=== PATIENT | female | born 1990 | race Caucasian/White ===

== ENCOUNTER 2017-02-11 09:11 | Emergency (ER) | payer MEDICAID ==
[2017-02-11 09:34] VITALS: BP 140/81
[2017-02-11] MEDS ORDERED: Sodium Chloride 0.9% 10 ML Syringe FLUSH PRN (09:51)
[2017-02-11] MEDS ORDERED: Ketorolac 30 MG/ML SDV IVPUSH ONE (09:51)
--- NOTE | 2017-02-11 10:37 | CT ---
CT abdomen and pelvis without contrast. Indication: Flank pain. Total DLP 365 Findings: Lung bases are clear. Liver within normal limits. Gallbladder is contracted. Adrenal glands within normal limits. Spleen within normal limits. Pancreas within normal limits. Moderate right-westley ed hydronephrosis. 4.5 mm stone at the right UVJ junction. No hydronephrosis left kidney. No does loo ps of small bowel. Mild free pelvic fluid. The appendix is within normal limits. Bladder is decompres sed. Medullary nephrocalcinosis. Impression: 1. Moderate right-sided hydronephrosis with obstructing 4.5 mm stone at the right UVJ junction.
[2017-02-11] MEDS ORDERED: HYDROmorphone 0.5 MG/0.5 ML Syringe IVPUSH ONE (10:38)
[2017-02-11] MEDS ORDERED: Tamsulosin 0.4 MG Cap.ER PO ONE (10:39)
--- NOTE | 2017-02-11 10:46 | EDM.PDOC ---
ED HPI GENERAL MEDICAL PROBLEM - General Chief Complaint: Genitourinary Problem Stated Complaint: POSSIBLE KIDNEY INFECTION Time Seen by Provider: 02/11/17 09:45 Source of Information: Reports: Patient History Limitations: Reports: No Limitations - History of Present Illness INITIAL COMMENTS - FREE TEXT/NARRATIVE: 26-year-old female who over the last several days thought she might of had a "bladder infection", but an hour and a half ago developed fairly sudden right- sided flank pain. She arrived very uncomfortable, nauseous but not vomiting. No fevers or chills, no shortness of breath. No significant abdominal pain. She has not had previous symptoms like this. She has a [id number] girl at home who she is still breast-feeding. 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 Psychiatric History: Reports: ADHD, Anxiety, Depression - Infectious Disease History Infectious Disease History: Reports: Chicken Pox - Past Surgical History HEENT Surgical History: Reports: Oral Surgery, Tonsillectomy Musculoskeletal Surgical History: Reports: Carpal Tunnel Social & Family History - Family History Family Medical History: Noncontributory - Tobacco Use Smoking Status *Q: Never Smoker Years of Tobacco use: 8 Used Tobacco, but Quit: Yes Month Tobacco Last Used: unknown Second Hand Smoke Exposure: No - Caffeine Use Caffeine Use: Reports: Coffee - Recreational Drug Use Recreational Drug Use: No ED ROS GENERAL - Review of Systems Review Of Systems: See Below Constitutional: Denies: Fever, Chills, Malaise Respiratory: Reports: No Symptoms Cardiovascular: Reports: No Symptoms GI/Abdominal: Reports: Nausea. Denies: Vomiting : Reports: Flank Pain Musculoskeletal: Reports: Back Pain Skin: Reports: No Symptoms Neurological: Reports: No Symptoms ED EXAM, GENERAL - Physical Exam Exam: See Below Exam Limited By: No Limitations General Appearance: Alert, Anxious, Moderate Distress Respiratory/Chest: No Respiratory Distress, Lungs Clear Cardiovascular: Regular Rate, Rhythm GI/Abdominal: Soft, Other (She reaction with tenderness to palpation across the anterior abdomen) Back Exam: Other (Tenderness to palpation over the iliac crest on the right) Neurological: Alert, Oriented Psychiatric: Anxious Skin Exam: Warm, Dry Course - Vital Signs Last Recorded V/S: Last Vital Signs Temp 96.9 F 02/11/17 09:34 Pulse 78 02/11/17 09:34 Resp 20 02/11/17 09:34 BP 140/81 02/11/17 09:34 Pulse Ox 99 02/11/17 09:34 - Orders/Labs/Meds Orders: Active Orders 24 hr Category Date Time Status Saline Lock Insert [OM.PC] Routine Oth 02/11/17 09:51 Ordered Labs: Laboratory Tests 02/11/17 02/11/17 Range/Units 09:53 09:53 Urine Color Yellow Urine Appearance Clear Urine pH 5.0 (4.5-8.0) Ur Specific [place]ard 1.020 (1.008-1.030) Urine Protein Negative (NEGATIVE) mg/dL Urine Glucose (UA) Normal (NEGATIVE) mg/dL Urine Ketones Negative (NEGATIVE) mg/dL Urine Occult Blood Negative (NEGATIVE) Urine Nitrite Negative (NEGATIVE) Urine Bilirubin Negative (NEGATIVE) Urine Urobilinogen Normal (NORMAL) mg/dL Ur Leukocyte Esterase Negative (NEGATIVE) Urine RBC 0-5 (0-5) Urine WBC 0-5 (0-5) Ur Epithelial Cells Rare Amorphous Sediment Not seen Urine Bacteria Not seen Urine Mucus Rare Urine HCG, Qual Negative Meds: Medications Discontinued Medications Generic Name Dose Route Start Last Admin Trade Name Freq PRN Reason Stop Dose Admin Hydromorphone HCl 0.5 mg 02/11/17 10:38 02/11/17 10:45 Dilaudid IVPUSH 02/11/17 10:39 0.5 mg ONETIME ONE Administration Ketorolac Tromethamine 30 mg 02/11/17 09:51 02/11/17 09:57 Toradol IVPUSH 02/11/17 09:52 30 mg ONETIME ONE Administration Sodium Chloride 10 ml 02/11/17 09:51 02/11/17 09:59 Saline Flush FLUSH 10 ml ASDIRECTED PRN Administration Keep Vein Open Tamsulosin HCl 0.4 mg 02/11/17 10:39 02/11/17 10:45 Flomax PO 02/11/17 10:40 0.4 mg ONETIME ONE Administration - Re-Assessments/Exams Free Text/Narrative Re-Assessment/Exam: 02/11/17 10:45 A UA was obtained which was negative. Urine was negative. CT of the abdomen and pelvis without contrast confirmed a 4.5 mm distal right ureteral stone with [id number] hydronephrosis. After IV Toradol 30 mg pain improved from a 10 to a 5. Patient was then given 0.4 mg of oral Flomax and 0.5 mg of Dilaudid IV. 02/11/17 11:02 Patient continued to get more comfortable. She was discharged with additional doses of ketorolac to take 10 mg every 6 hours, and 15 Tylenol 3's to take for extra pain control. She will return if worsening, or consider returning in 2-3 days if still having symptoms. Departure - Departure Time of Disposition: 11:14 Disposition: Home, Self-Care 01 Condition: Good Clinical Impression: Kidney stone, Renal colic on right side - Discharge Information Instructions: Kidney Stones, [id number] Referrals: Marisol García CNM [Primary Care Provider] - Forms: ED Department Discharge Care Plan Goals: Take ketorolac every 6 hours until symptoms are gone. Use Tylenol 3 for extra pain control as directed. Stay hydrated, and return anytime if worsening or unable to take the medications. Also consider rechecking in 2-3 days if still having some symptoms and call tomorrow for an additional Flomax dose if symptoms haven't resolved completely. - My Orders Last 24 Hours: My Active Orders 02/11/17 09:51 Saline Lock Insert [OM.PC] Routine - Assessment/Plan Last 24 Hours: My Active Orders 02/11/17 09:51 Saline Lock Insert [OM.PC] Routine
== END 2017-02-11 11:20 | disposition home or self-care (01) ==
LOC: JP.ED 09:11
DX: N13.2 Hydronephrosis with renal and ureteral calculous obstruction (principal); F90.9 Attention-deficit hyperactivity disorder, unspecified type; F41.9 Anxiety disorder, unspecified; Z98.890 Other specified postprocedural states; Z79.899 Other long term (current) drug therapy; Z88.1 Allergy status to other antibiotic agents
CPT/HCPCS: 74176; 81001; 81025; 96374; 96375; 99284; A9270; J1170; J1885; J7050

== ENCOUNTER 2017-02-12 05:34 | Emergency (ER) | payer MEDICAID ==
[2017-02-12] MEDS ORDERED: HYDROmorphone 1 MG/ML Syringe IVPUSH ONE (06:02)
[2017-02-12] MEDS ORDERED: Sodium Chloride 0.9% 10 ML Syringe FLUSH PRN (06:02)
[2017-02-12 06:03] VITALS: BP 111/62
[2017-02-12] MEDS ORDERED: Tamsulosin 0.4 MG Cap.ER PO ONE (06:23)
--- NOTE | 2017-02-12 06:36 | EDM.PDOC ---
ED HPI GENERAL MEDICAL PROBLEM - General Chief Complaint: Genitourinary Problem Stated Complaint: KIDNEY STONES Time Seen by Provider: 02/12/17 06:01 Source of Information: Reports: Patient History Limitations: Reports: No Limitations - History of Present Illness INITIAL COMMENTS - FREE TEXT/NARRATIVE: this patient was seen in the ER yesterday for a kidney stone. She has a 4.3 mm stone at the right ureterovesical junction. She was given IM Toradol which gave her moderate pain relief. She was discharged on oral Toradol as well as Tylenol No. 3. This lady is breast-feeding also area she said the pain medication is not helping and she describes severe right flank pain. She has not passed the stone. She denies any fever. 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 Psychiatric History: Reports: ADHD, Anxiety, Depression - Infectious Disease History Infectious Disease History: Reports: Chicken Pox, Shingles - Past Surgical History HEENT Surgical History: Reports: Oral Surgery, Tonsillectomy Musculoskeletal Surgical History: Reports: Carpal Tunnel Social & Family History - Family History Family Medical History: Noncontributory - Tobacco Use Smoking Status *Q: Never Smoker Years of Tobacco use: 8 Used Tobacco, but Quit: Yes Month Tobacco Last Used: unknown Second Hand Smoke Exposure: No - Caffeine Use Caffeine Use: Reports: Coffee - Recreational Drug Use Recreational Drug Use: No ED ROS GENERAL - Review of Systems Review Of Systems: ROS reveals no pertinent complaints other than HPI. ED EXAM, RENAL/ - Physical Exam Exam: See Below Exam Limited By: No Limitations General Appearance: Alert, WD/WN, Mild Distress Eye Exam: Bilateral Eye: Normal Inspection Throat/Mouth: Normal Lips, Normal Voice Neck: Normal Inspection Respiratory/Chest: Lungs Clear Cardiovascular: Regular Rate, Rhythm Back Exam: No: CVA Tenderness (R) Extremities: Normal Inspection Neurological: Alert, Oriented Skin Exam: Warm, Dry Course - Vital Signs Last Recorded V/S: Last Vital Signs Temp 36.7 C 02/12/17 06:02 Pulse 73 02/12/17 06:02 Resp 16 02/12/17 06:02 BP 111/62 02/12/17 06:02 Pulse Ox 99 02/12/17 06:02 - Orders/Labs/Meds Orders: Active Orders 24 hr Category Date Time Status Sodium Chloride 0.9% [Saline Flush] Med 02/12/17 06:02 Active 10 ml FLUSH ASDIRECTED PRN Saline Lock Insert [OM.PC] Urgent Oth 02/12/17 06:02 Ordered Medication Orders Sodium Chloride (Saline Flush) 10 ml FLUSH ASDIRECTED PRN PRN Reason: Keep Vein Open Last Admin: 02/12/17 06:09 Dose: 10 ml Meds: Medications Generic Name Dose Route Start Last Admin Trade Name Freq PRN Reason Stop Dose Admin Sodium Chloride 10 ml 02/12/17 06:02 02/12/17 06:09 Saline Flush FLUSH 10 ml ASDIRECTED PRN Administration Keep Vein Open Discontinued Medications Generic Name Dose Route Start Last Admin Trade Name Freq PRN Reason Stop Dose Admin Hydromorphone HCl 1 mg 02/12/17 06:02 02/12/17 06:07 Dilaudid IVPUSH 02/12/17 06:03 1 mg ONETIME ONE Administration Tamsulosin HCl 0.4 mg 02/12/17 06:23 02/12/17 06:32 Flomax PO 02/12/17 06:24 0.4 mg ONETIME ONE Administration - Re-Assessments/Exams Free Text/Narrative Re-Assessment/Exam: 02/12/17 06:59 this patient received Dilaudid 1 mg IV which brought her pain level down to about a 4 or 5 out of 10. She also received 0.4 mg of Flomax orally. Departure - Departure Time of Disposition: 06:27 Disposition: Home, Self-Care 01 Condition: Fair Clinical Impression: Ureterolithiasis - Discharge Information Referrals: Marisol García CNM [Primary Care Provider] - Forms: ED Department Discharge Additional Instructions: For pain take Dilaudid 2 mg every 4 hours. (#15 prescribed) You may adjust the dosage up for better pain control or down if it causes sedation (can impair driving). This drug is sometimes given to infants so the very small amount secreted in breast milk should not harm your baby. Still, watch for signs of sedation and if noted then consider switching to formula. Continue taking Toradol. Take Flomax 0.4 mg daily until the stone passes ( beginning tomorrow.) You have a lot of stool in the colon and this could possibly slow passage of the stone. The Dilaudid may cause constipation. Try using a laxative such as Milk of Magnesia or Miralax. see your Dr. if you have passed the stone in about 2 more days. If at any time you develop a fever you should be seen immediately. Return to the ER at any time if needed - My Orders Last 24 Hours: My Active Orders 02/12/17 06:02 Sodium Chloride 0.9% [Saline Flush] 10 ml FLUSH ASDIRECTED PRN Saline Lock Insert [OM.PC] Urgent - Assessment/Plan Last 24 Hours: My Active Orders 02/12/17 06:02 Sodium Chloride 0.9% [Saline Flush] 10 ml FLUSH ASDIRECTED PRN Saline Lock Insert [OM.PC] Urgent
== END 2017-02-12 07:27 | disposition home or self-care (01) ==
LOC: JP.ED 05:34
DX: N20.1 Calculus of ureter (principal); F41.9 Anxiety disorder, unspecified; F32.9 Major depressive disorder, single episode, unspecified; Z88.1 Allergy status to other antibiotic agents; Z79.899 Other long term (current) drug therapy
CPT/HCPCS: 96374; 99283; A9270; J1170; J7050

== ENCOUNTER 2017-06-22 17:13 | Emergency (ER) | payer MEDICAID ==
[2017-06-22 17:29] VITALS: BP 93/61
--- NOTE | 2017-06-22 18:06 | EDM.PDOC ---
ED HPI GENERAL MEDICAL PROBLEM - General Chief Complaint: ENT Problem Stated Complaint: SORE THROAT AND EARS Time Seen by Provider: 06/22/17 17:56 Source of Information: Reports: Patient, RN Notes Reviewed History Limitations: Reports: No Limitations - History of Present Illness INITIAL COMMENTS - FREE TEXT/NARRATIVE: 26-year-old female presents to the emergency department today with complaint of sore throat and left ear pain, she states she's been ill for about 3 days has not had fever or body aches left ear Pain Score (Numeric/FACES): 5 - Related Data Allergies Allergy/AdvReac Type Severity Reaction Status Date / Time amoxicillin [Amoxicillin] Allergy Hives Verified 06/22/17 17:34 Home Meds: Home Meds Sertraline [Zoloft] 100 mg PO DAILY 02/11/17 [History] Cefdinir [Omnicef] 300 mg PO BID #20 cap 06/22/17 [Rx] Past Medical History Genitourinary History: Reports: Other (See Below) Other Genitourinary History: r kidney stone 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: , 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 Psychiatric History: Reports: ADHD, Anxiety, Depression - Infectious Disease History Infectious Disease History: Reports: Chicken Pox, Shingles - Past Surgical History HEENT Surgical History: Reports: Myringotomy w Tube(s), Oral Surgery, Tonsillectomy Musculoskeletal Surgical History: Reports: Carpal Tunnel Social & Family History - Family History Family Medical History: Noncontributory - Tobacco Use Smoking Status *Q: Never Smoker Years of Tobacco use: 8 Used Tobacco, but Quit: Yes Month Tobacco Last Used: unknown Second Hand Smoke Exposure: No - Caffeine Use Caffeine Use: Reports: Coffee - Recreational Drug Use Recreational Drug Use: No ED ROS GENERAL - Review of Systems Review Of Systems: See Below Constitutional: Denies: Fever, Chills HEENT: Reports: Throat Pain Respiratory: Reports: No Symptoms Cardiovascular: Reports: No Symptoms GI/Abdominal: Reports: No Symptoms ED EXAM, GENERAL - Physical Exam Exam: See Below Free Text/Narrative:: General: Female, not in any distress, alert and oriented x3 HEENT: head is atraumatic normocephalic, eyes pupils equal round reactive to light, sclera clear no conjunctivitis appreciated. Ears tympanic membranes clear and san landmarks and light reflex are present bilaterally canals are clear. Nose no septal deviation, nares are clear, no blood present. Mouth mucosa is moist and pink no erythema or exudate noted in soft palate, tongue is midline uvula is midline, dentition is intact. Neck: Supple no thyromegaly no tracheal deviation. Nodes: Cervical nodes subclavicular nodes nontender no palpable lymphadenopathy noted. Lungs: clear to auscultation bilaterally with symmetrical respirations, no adventitious noise appreciated. CV: Regular rate and rhythm S1 and S2 appreciated no murmurs rubs or gallops noted. Course - Vital Signs Last Recorded V/S: Last Vital Signs Temp 98.2 F 06/22/17 17:32 Pulse 74 06/22/17 17:32 Resp 16 06/22/17 17:32 BP 93/61 06/22/17 17:32 Pulse Ox 97 06/22/17 17:32 - Orders/Labs/Meds Meds: Medications Discontinued Medications Generic Name Dose Route Start Last Admin Trade Name Freq PRN Reason Stop Dose Admin Cefdinir 300 mg 06/22/17 18:59 Omnicef PO 06/22/17 19:00 ONETIME ONE Departure - Departure Time of Disposition: 19:06 Disposition: Home, Self-Care 01 Condition: Good Clinical Impression: Pharyngitis Qualifiers: Pharyngitis/tonsillitis etiology: unspecified etiology Qualified Code(s): J02.9 - Acute pharyngitis, unspecified - Discharge Information Prescriptions: Cefdinir [Omnicef] 300 mg PO BID #20 cap Referrals: Marisol García CNM [Primary Care Provider] - Forms: ED Department Discharge Additional Instructions: take full course of antibiotics, Please followup with your primary care provider in 7-10 days if not better, please call return to the emergency department with worsening of symptoms. - Assessment/Plan Plan: Assessment Acuity = acute Site and laterality = pharyngitis Etiology = positive exposure to group A streptococcus Manifestations = none Location of injury = Home Lab values = none Plan Will treat with Omnicef 300 mg by mouth twice a day 10 days follow-up with primary care 7-10 days no improvement This note was dictated using [email or web address] voice recognition software please call with any questions on syntax or paige.
[2017-06-22] MEDS ORDERED: Cefdinir 300 MG Cap PO ONE (18:59)
== END 2017-06-22 19:18 | disposition home or self-care (01) ==
LOC: JP.ED 17:13
DX: J02.9 Acute pharyngitis, unspecified (principal); F32.9 Major depressive disorder, single episode, unspecified; Z87.891 Personal history of nicotine dependence; Z79.899 Other long term (current) drug therapy; Z88.1 Allergy status to other antibiotic agents
CPT/HCPCS: 99283; A9270

== ENCOUNTER 2017-11-23 13:55 | Emergency (ER) | payer MEDICAID ==
[2017-11-23 14:23] VITALS: BP 122/84
--- NOTE | 2017-11-23 14:37 | EDM.PDOC ---
ED HPI GENERAL MEDICAL PROBLEM - General Chief Complaint: Gastrointestinal Problem Stated Complaint: VOMITING FOR 3 DAYS Time Seen by Provider: 11/23/17 14:41 Source of Information: Reports: Patient History Limitations: Reports: No Limitations - History of Present Illness INITIAL COMMENTS - FREE TEXT/NARRATIVE: With vomiting since Saturday afternoon. Last vomited an hour ago. No fevers. No abdominal pain. With diarrhea as well, last one this morning. Appetite poor. Onset: Sudden Onset Date: 11/19/17 Duration: Intermittent Severity: Moderate Improves with: Reports: None Worsens with: Reports: None Associated Symptoms: Reports: Headaches, Loss of Appetite, Nausea/Vomiting, Weakness Headache Pain Score (Numeric/FACES): 7 - Related Data Allergies Allergy/AdvReac Type Severity Reaction Status Date / Time amoxicillin [Amoxicillin] Allergy Hives Verified 11/23/17 14:26 Home Meds: Home Meds Sertraline [Zoloft] 100 mg PO DAILY 02/11/17 [History] Norethindrone [Norlyda] 1 tab PO DAILY 11/23/17 [History] Past Medical History Genitourinary History: Reports: Renal Calculus Other Genitourinary History: r kidney stone 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: , 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 Neurological History: Reports: Migraines Psychiatric History: Reports: ADHD, Anxiety, Depression - Infectious Disease History Infectious Disease History: Reports: Chicken Pox, Shingles - Past Surgical History HEENT Surgical History: Reports: Myringotomy w Tube(s), Oral Surgery, Tonsillectomy Musculoskeletal Surgical History: Reports: Carpal Tunnel Social & Family History - Family History Family Medical History: Noncontributory - Tobacco Use Smoking Status *Q: Never Smoker - Caffeine Use Caffeine Use: Reports: Coffee - Recreational Drug Use Recreational Drug Use: No ED ROS GENERAL - Review of Systems Review Of Systems: See Below Constitutional: Reports: Decreased Appetite HEENT: Reports: No Symptoms Respiratory: Reports: No Symptoms Cardiovascular: Reports: No Symptoms Endocrine: Reports: No Symptoms GI/Abdominal: Reports: Diarrhea, Vomiting : Reports: No Symptoms, Other (LMP 11/15/17) Musculoskeletal: Reports: No Symptoms Skin: Reports: No Symptoms, Other (sunburn) Neurological: Reports: Headache Psychiatric: Reports: No Symptoms Hematologic/Lymphatic: Reports: No Symptoms Immunologic: Reports: No Symptoms ED EXAM, GI/ABD - Physical Exam Exam: See Below Exam Limited By: No Limitations General Appearance: Alert, WD/WN, No Apparent Distress Ears: Normal External Exam, Normal Canal, Hearing Grossly Normal, Normal TMs Nose: Normal Inspection, Normal Mucosa, No Blood Throat/Mouth: Normal Inspection, Normal Lips, Normal Teeth, Normal Gums, Normal Oropharynx, Normal Voice, No Airway Compromise Head: Atraumatic, Normocephalic Neck: Normal Inspection, Supple, Non-Tender, Full Range of Motion Respiratory/Chest: No Respiratory Distress, Lungs Clear, Normal Breath Sounds, No Accessory Muscle Use, Chest Non-Tender Cardiovascular: Normal Peripheral Pulses, Regular Rate, Rhythm, No Edema, No Gallop, No JVD, No Murmur, No Rub GI/Abdominal Exam: Normal Bowel Sounds, Soft, Non-Tender, No Organomegaly, No Distention, No Abnormal Bruit, No Mass, Pelvis Stable Extremities: Normal Inspection Neurological: Alert, Oriented, CN II-XII Intact, Normal Cognition, Normal Gait, Normal Reflexes, No Motor/Sensory Deficits Psychiatric: Normal Affect, Normal Mood Skin Exam: Warm, Dry, Intact, Normal Color, No Rash Course - Vital Signs Last Recorded V/S: Last Vital Signs Temp 97.7 F 11/23/17 14:24 Pulse 74 11/23/17 14:24 Resp 16 11/23/17 14:24 BP 122/84 11/23/17 14:24 Pulse Ox 98 11/23/17 14:24 - Orders/Labs/Meds Labs: Laboratory Tests 11/23/17 11/23/17 Range/Units 14:57 14:57 WBC 9.2 (4.5-11.0) K/uL RBC 4.17 (3.30-5.50) M/uL Hgb 12.5 D (12.0-15.0) g/dL Hct 38.5 (36.0-48.0) % MCV 92 (80-98) fL MCH 30 (27-31) pg MCHC 33 (32-36) % Plt Count 296 (150-400) K/uL Neut % (Auto) 59 (36-66) % Lymph % (Auto) 27 (24-44) % [place] % (Auto) 11 H (2-6) % Eos % (Auto) 2 (2-4) % Baso % (Auto) 0 (0-1) % Sodium 142 (140-148) mmol/L Potassium 3.8 (3.6-5.2) mmol/L Chloride 107 (100-108) mmol/L Carbon Dioxide 28 (21-32) mmol/L Anion Gap 7.1 (5.0-14.0) mmol/L BUN 11 D (7-18) mg/dL Creatinine 0.7 (0.6-1.0) mg/dL Est Cr Clr Drug Dosing 96.71 mL/min Estimated GFR (MDRD) > 60 (>60) Glucose 94 (74-106) mg/dL Calcium 8.6 (8.5-10.1) mg/dL Total Bilirubin 0.3 (0.2-1.0) mg/dL AST 16 (15-37) U/L ALT 26 (12-78) U/L Alkaline Phosphatase 83 (46-116) U/L Total Protein 7.0 (6.4-8.2) g/dL Albumin 3.8 (3.4-5.0) g/dL Globulin 3.2 (2.3-3.5) g/dL Albumin/Globulin Ratio 1.2 (1.2-2.2) Meds: Medications Discontinued Medications Generic Name Dose Route Start Last Admin Trade Name Freq PRN Reason Stop Dose Admin Sodium Chloride 1,000 mls @ 999 drops/sec 11/23/17 14:47 11/23/17 15:12 Normal Saline IV 11/23/17 14:48 999 drops/sec .BOLUS ONE Administration Ondansetron HCl 4 mg 11/23/17 14:47 11/23/17 15:13 Zofran IVPUSH 11/23/17 14:48 4 mg ONETIME ONE Administration Departure - Departure Time of Disposition: 16:28 Disposition: Home, Self-Care 01 Condition: Good Clinical Impression: Gastroenteritis - Discharge Information Instructions: Viral Gastroenteritis, Adult Referrals: Marisol García CNM [Primary Care Provider] - Forms: ED Department Discharge Additional Instructions: Labs WNL. IV NS 1000cc infused. Zofran 4mg IV given. Pt with improved symptoms. Will DC home. BRAT diet. Stressed hydration. Followup for stool cultures if symptoms last more than 7 days. - Problem List & Annotations (1) Gastroenteritis SNOMED Code(s): 57804253 Code(s): K52.9 - NONINFECTIVE GASTROENTERITIS AND COLITIS, UNSPECIFIED Status: Acute Priority: Medium Current Visit: Yes
[2017-11-23] MEDS ORDERED: Sodium Chloride 0.9% 1,000 ML IV ONE (14:47)
[2017-11-23] MEDS ORDERED: Ondansetron 4 MG/2 ML SDV IVPUSH ONE (14:47)
== END 2017-11-23 16:39 | disposition home or self-care (01) ==
LOC: JP.ED 13:55
DX: K52.9 Noninfective gastroenteritis and colitis, unspecified (principal); Z88.1 Allergy status to other antibiotic agents; Z79.899 Other long term (current) drug therapy
CPT/HCPCS: 36415; 80053; 85025; 96361; 96374; 99284; J2405; J7030

== ENCOUNTER 2018-01-13 18:04 | Emergency (ER) | payer MEDICAID ==
[2018-01-13 18:19] VITALS: BP 117/70
[2018-01-13] MEDS ORDERED: Prochlorperazine 10 MG in Sodium Chloride 0.9% 50 ML IV ONE (18:44)
[2018-01-13] MEDS ORDERED: Ketorolac 30 MG/ML SDV IVPUSH ONE (18:45)
[2018-01-13] MEDS ORDERED: diphenhydrAMINE 50 MG/ML SDV IVPUSH ONE (18:45)
--- NOTE | 2018-01-13 18:51 | EDM.PDOC ---
ED HPI GENERAL MEDICAL PROBLEM - General Chief Complaint: Headache Stated Complaint: MIGRAINE Time Seen by Provider: 01/13/18 18:47 Source of Information: Reports: Patient History Limitations: Reports: No Limitations - History of Present Illness INITIAL COMMENTS - FREE TEXT/NARRATIVE: Pt has had an increase in headaches to the point she has had them about once weekly. She is not on any preventive meds. She has not carried the diagnosis of migraine headaches until this summer she has not been worked up. She has not had a head scan. She describes her headache as in the center of the head. Onset: Other ( sstarted 2 days ago. ) Duration: Hour(s): Location: Reports: Head Associated Symptoms: Reports: No Other Symptoms Headache Pain Score (Numeric/FACES): 8 - Related Data Allergies Allergy/AdvReac Type Severity Reaction Status Date / Time amoxicillin [Amoxicillin] Allergy Hives Verified 01/13/18 18:22 Home Meds: Home Meds Sertraline [Zoloft] 100 mg PO DAILY 02/11/17 [History] Norethindrone [Norlyda] 1 tab PO DAILY 11/23/17 [History] Past Medical History Genitourinary History: Reports: Renal Calculus Other Genitourinary History: r kidney stone [employer] History: Reports: , Spontaneous Neurological History: Reports: Migraines Psychiatric History: Reports: ADHD, Anxiety, Depression - Infectious Disease History Infectious Disease History: Reports: Chicken Pox, Shingles - Past Surgical History HEENT Surgical History: Reports: Myringotomy w Tube(s), Oral Surgery, Tonsillectomy Musculoskeletal Surgical History: Reports: Carpal Tunnel Social & Family History - Family History Family Medical History: Noncontributory - Tobacco Use Smoking Status *Q: Unknown Ever Smoked - Caffeine Use Caffeine Use: Reports: None - Recreational Drug Use Recreational Drug Use: No ED ROS GENERAL - Review of Systems Review Of Systems: See Below Constitutional: Reports: No Symptoms HEENT: Reports: Vision Change, Other ( slight blurring of her vision. She is very lite sensitive. ) Respiratory: Reports: No Symptoms Cardiovascular: Reports: No Symptoms Endocrine: Reports: No Symptoms GI/Abdominal: Reports: No Symptoms, Nausea : Reports: No Symptoms Musculoskeletal: Reports: No Symptoms Skin: Reports: No Symptoms Neurological: Reports: Headache Psychiatric: Reports: No Symptoms - Physical Exam Exam: See Below Text/Narrative:: pt is a uncomfortable 27 year old who has had headaches more frequent. She has had a headache which has been going on for 2 days and she has not been able to get it to settle down. She has been nauseated but has not vomited. She has not been diagnosed as a migraine in the past. She Does not have a family history of migraines. She has been getting headaches about twice weekly Exam Limited By: No Limitations General Appearance: Alert, Anxious, Moderate Distress, Other (pupils equal and reactive. ) Ears: Normal TMs Nose: Normal Inspection Throat/Mouth: Normal Inspection Head Exam: Atraumatic Neck: Other (pt does not have alot of neck tenderness at this time. ) Respiratory/Chest: No Respiratory Distress Cardiovascular: Regular Rate, Rhythm GI/Abdominal: Soft, Non-Tender (Female) Exam: Deferred Rectal (Female) Exam: Deferred Neuro Exam (Abbreviated): Alert, Oriented, Normal Cognition Back Exam: Normal Inspection Extremities: Normal Inspection Psychiatric: Normal Affect Course - Vital Signs Last Recorded V/S: Last Vital Signs Temp 36.4 C 01/13/18 18:21 Pulse 67 01/13/18 18:21 Resp 14 01/13/18 18:21 BP 117/70 01/13/18 18:21 Pulse Ox 100 01/13/18 18:21 - Orders/Labs/Meds Orders: Active Orders 24 hr Category Date Time Status Head wo Cont [CT] Stat Exams 01/13/18 18:45 Taken Sodium Chloride 0.9% [Normal Saline] 1,000 ml Med 01/13/18 19:00 Active IV ASDIRECTED Medication Orders Sodium Chloride (Normal Saline) 1,000 mls @ 999 mls/hr IV ASDIRECTED YOAN Last Admin: 01/13/18 19:03 Dose: 999 mls/hr Meds: Medications Generic Name Dose Route Start Last Admin Trade Name Freq PRN Reason Stop Dose Admin Sodium Chloride 1,000 mls @ 999 mls/hr 01/13/18 19:00 01/13/18 19:03 Normal Saline IV 999 mls/hr ASDIRECTED YOAN Administration Discontinued Medications Generic Name Dose Route Start Last Admin Trade Name Freq PRN Reason Stop Dose Admin Diphenhydramine HCl 25 mg 01/13/18 18:45 01/13/18 18:56 Benadryl IVPUSH 01/13/18 18:46 25 mg ONETIME ONE Administration Hydromorphone HCl 0.5 mg 01/13/18 19:49 01/13/18 19:53 Dilaudid IVPUSH 01/13/18 19:50 0.5 mg ONETIME ONE Administration Prochlorperazine Edisylate 10 52 mls @ 150 mls/hr 01/13/18 18:44 01/13/18 18: 56 mg/ Sodium Chloride IV 01/13/18 19:04 150 mls/hr ONETIME ONE Administration Ketorolac Tromethamine 30 mg 01/13/18 18:45 01/13/18 18:56 Toradol IVPUSH 01/13/18 18:46 30 mg ONETIME ONE Administration - Re-Assessments/Exams Free Text/Narrative Re-Assessment/Exam: 01/13/18 19:55 A cat scan of the head was done which was found to be normal. 01/13/18 20:11 pt was given torodol 30mg iv, benadryl 25 mg iv, compazine 10 mg iv this brought the pain down to a 4 > She was then given dilaudid .5 and she is pretty much pain free. She will be scheduled for a appt with Ermelinda García to have some preventive meds for her migraine type headaches. Departure - Departure Time of Disposition: 20:13 Disposition: Home, Self-Care 01 Condition: Fair Clinical Impression: Migraine - Discharge Information Referrals: Marisol García CNM [Primary Care Provider] - Forms: ED Department Discharge Care Plan Goals: rest when pt gets home, appt with Ermelinda García in the next 4-5 days. Possible preventive meds can be added. - My Orders Last 24 Hours: My Active Orders 01/13/18 18:45 Head wo Cont [CT] Stat 01/13/18 19:00 Sodium Chloride 0.9% [Normal Saline] 1,000 ml IV ASDIRECTED - Assessment/Plan Last 24 Hours: My Active Orders 01/13/18 18:45 Head wo Cont [CT] Stat 01/13/18 19:00 Sodium Chloride 0.9% [Normal Saline] 1,000 ml IV ASDIRECTED
[2018-01-13] MEDS ORDERED: Sodium Chloride 0.9% 1,000 ML IV SCH (19:00)
[2018-01-13] MEDS ORDERED: HYDROmorphone 0.5 MG/0.5 ML Syringe IVPUSH ONE (19:49)
== END 2018-01-13 20:25 | disposition home or self-care (01) ==
LOC: JP.ED 18:04
DX: G43.909 Migraine, unspecified, not intractable, without status migrainosus (principal); Z88.1 Allergy status to other antibiotic agents; Z79.899 Other long term (current) drug therapy
CPT/HCPCS: 70450; 96361; 96365; 96375; 99284; J0780; J1170; J1200; J1885; J7030; J7050

== ENCOUNTER 2018-06-07 12:58 | Emergency (ER) | payer MEDICAID ==
[2018-06-07 14:04] VITALS: BP 111/81
--- NOTE | 2018-06-07 14:18 | EDM.PDOC ---
ED HPI GENERAL MEDICAL PROBLEM - General Chief Complaint: Respiratory Problem Stated Complaint: CHEST CONJESTION/ COUGH/ NAUSEA Time Seen by Provider: 06/07/18 14:17 Source of Information: Reports: Patient, Family History Limitations: Reports: No Limitations - History of Present Illness INITIAL COMMENTS - FREE TEXT/NARRATIVE: pt arrived sob and coughing alot. She has very bad mornings and she is wheezy at that time. Onset: Gradual, Other (pt has been ill for about 3 weeks. ) Duration: Day(s): Location: Reports: Chest Associated Symptoms: Reports: Cough, Shortness of Breath, Other (pt has had a fever once again in the last 36 hours . The cough started about 3 weeks ago. ) - Related Data Allergies Allergy/AdvReac Type Severity Reaction Status Date / Time amoxicillin [Amoxicillin] Allergy Hives Verified 01/13/18 18:22 Home Meds: Home Meds Sertraline [Zoloft] 100 mg PO DAILY 02/11/17 [History] Norethindrone [Norlyda] 1 tab PO DAILY 11/23/17 [History] Past Medical History Genitourinary History: Reports: Renal Calculus Other Genitourinary History: r kidney stone [employer] History: Reports: , Spontaneous Neurological History: Reports: Migraines Psychiatric History: Reports: ADHD, Anxiety, Depression - Infectious Disease History Infectious Disease History: Reports: Chicken Pox, Shingles - Past Surgical History HEENT Surgical History: Reports: Myringotomy w Tube(s), Oral Surgery, Tonsillectomy Musculoskeletal Surgical History: Reports: Carpal Tunnel Social & Family History - Family History Family Medical History: Noncontributory - Tobacco Use Smoking Status *Q: Former Smoker Used Tobacco, but Quit: Yes Month/Year Tobacco Last Used: 3years - Caffeine Use Caffeine Use: Reports: Coffee - Recreational Drug Use Recreational Drug Use: No ED ROS GENERAL - Review of Systems Review Of Systems: See Below Constitutional: Reports: No Symptoms HEENT: Reports: No Symptoms Respiratory: Reports: Shortness of Breath, Wheezing, Other (pt is particularly wheezy in the AM. ) Cardiovascular: Reports: No Symptoms Endocrine: Reports: No Symptoms GI/Abdominal: Reports: No Symptoms : Reports: No Symptoms Musculoskeletal: Reports: No Symptoms Skin: Reports: No Symptoms ED EXAM, GENERAL - Physical Exam Exam: See Below Free Text/Narrative:: pt arrived with a history of a cough for 3 weeks. She spiked a temp up to 102 last nite. She does not have a temp today. Exam Limited By: No Limitations General Appearance: Alert, Mild Distress Ears: Normal TMs, Other ( small amount of fluid present. ) Nose: Normal Inspection Throat/Mouth: Normal Inspection Head: Atraumatic Neck: Normal Inspection Respiratory/Chest: No Respiratory Distress, Other (pt has a few rales at the lung bases. ) Cardiovascular: Regular Rate, Rhythm GI/Abdominal: Soft, Non-Tender (Female) Exam: Deferred Rectal (Female) Exam: Deferred Back Exam: Normal Inspection Extremities: Normal Inspection Neurological: Alert, Oriented, Normal Cognition Psychiatric: Anxious Course - Vital Signs Last Recorded V/S: Last Vital Signs Temp 35.4 C 06/07/18 14:06 Pulse 88 06/07/18 14:06 Resp 14 06/07/18 14:06 BP 111/81 06/07/18 14:06 Pulse Ox 98 06/07/18 14:06 - Orders/Labs/Meds Orders: Active Orders 24 hr Category Date Time Status Chest 2V [CR] Stat Exams 06/07/18 14:16 Taken Labs: Laboratory Tests 06/07/18 Range/Units 14:16 WBC 10.0 (4.5-11.0) K/uL RBC 4.31 (3.30-5.50) M/uL Hgb 13.1 (12.0-15.0) g/dL Hct 39.4 (36.0-48.0) % MCV 91 (80-98) fL MCH 30 (27-31) pg MCHC 33 (32-36) % Plt Count 350 (150-400) K/uL Neut % (Auto) 64 (36-66) % Lymph % (Auto) 24 (24-44) % [place] % (Auto) 11 H (2-6) % Eos % (Auto) 1 L (2-4) % Baso % (Auto) 0 (0-1) % - Re-Assessments/Exams Free Text/Narrative Re-Assessment/Exam: 06/07/18 16:02 wbc was normal. Her influ a and b was neg Departure - Departure Time of Disposition: 16:03 Disposition: Home, Self-Care 01 Condition: Fair Clinical Impression: Bronchitis - Discharge Information Referrals: Marisol García CNM [Primary Care Provider] - Forms: ED Department Discharge Care Plan Goals: push fluids, cool mist humidifier, albuterol inhaler 2 puffs tid, tesslon perles 200mg q6h as needed for cough, zithromax for 8 days. - My Orders Last 24 Hours: My Active Orders 06/07/18 14:16 Chest 2V [CR] Stat - Assessment/Plan Last 24 Hours: My Active Orders 06/07/18 14:16 Chest 2V [CR] Stat
--- NOTE | 2018-06-09 12:57 | CR ---
Chest 2V FINDINGS: The heart and vascular structures are normal in appearance. No infiltrates or effusions are demonstrated. The skeletal structures are unremarkable. IMPRESSION: Negative exam.
== END 2018-06-07 16:14 | disposition home or self-care (01) ==
LOC: JP.ED 12:58
DX: J40 Bronchitis, not specified as acute or chronic (principal); F41.9 Anxiety disorder, unspecified; F32.9 Major depressive disorder, single episode, unspecified; Z79.3 Long term (current) use of hormonal contraceptives; Z88.1 Allergy status to other antibiotic agents; Z79.899 Other long term (current) drug therapy; Z87.891 Personal history of nicotine dependence
CPT/HCPCS: 36415; 71046; 71046-26; 85025; 87804; 87804-59; 99285

== ENCOUNTER 2018-10-27 11:47 | Emergency (ER) | payer MEDICAID ==
[2018-10-27 12:37] VITALS: BP 121/71
[2018-10-27] MEDS ORDERED: Ketorolac 60 MG/2 ML SDV IM ONE (13:31)
--- NOTE | 2018-10-27 13:33 | EDM.PDOC ---
ED HPI GENERAL MEDICAL PROBLEM - General Chief Complaint: General Stated Complaint: LOWER STOMACH PAIN, RIGHT ARM PAIN Time Seen by Provider: 10/27/18 13:20 Source of Information: Reports: Patient History Limitations: Reports: No Limitations - History of Present Illness INITIAL COMMENTS - FREE TEXT/NARRATIVE: 28-year-old female who awoke this morning with intense left lower abdominal and pelvic pain typical of ovarian cyst pain that she's had in the past. She came in to be evaluated in the pain was so intense that she "passed out" in the lobby onto her right elbow and wants that examined as well. She does have a small abrasion on her right elbow. Nausea but no vomiting. Onset: Unknown/Unsure (Pain and pelvis started sometime overnight, the elbow pain started within the last hour) Location: Reports: Pelvis, Upper Extremity, Right Associated Symptoms: Reports: Weakness, Other (Dizzy, lightheaded) - Related Data Allergies Allergy/AdvReac Type Severity Reaction Status Date / Time amoxicillin [Amoxicillin] Allergy Hives Verified 01/13/18 18:22 Home Meds: Home Meds Sertraline [Zoloft] 100 mg PO DAILY 02/11/17 [History] Past Medical History Genitourinary History: Reports: Renal Calculus Other Genitourinary History: r kidney stone [employer] History: Reports: , Spontaneous Neurological History: Reports: Migraines Psychiatric History: Reports: ADHD, Anxiety - Infectious Disease History Infectious Disease History: Reports: Chicken Pox - Past Surgical History HEENT Surgical History: Reports: Myringotomy w Tube(s), Oral Surgery, Tonsillectomy Female Surgical History: Reports: None Neurological Surgical History: Reports: None Musculoskeletal Surgical History: Reports: Carpal Tunnel Social & Family History - Family History Family Medical History: Noncontributory - Tobacco Use Smoking Status *Q: Light Tobacco Smoker Years of Tobacco use: 5 Packs/Tins Daily: 0 Used Tobacco, but Quit: No Second Hand Smoke Exposure: No - Caffeine Use Caffeine Use: Reports: Coffee - Alcohol Use Days Per Week of Alcohol Use: 1 Number of Drinks Per Day: 1 Total Drinks Per Week: 1 - Recreational Drug Use Recreational Drug Use: No ED ROS GENERAL - Review of Systems Review Of Systems: See Below Constitutional: Denies: Fever, Chills HEENT: Reports: No Symptoms Respiratory: Denies: Shortness of Breath Cardiovascular: Denies: Chest Pain GI/Abdominal: Reports: Abdominal Pain, Nausea. Denies: Vomiting : Reports: No Symptoms Skin: Reports: Diaphoresis Neurological: Reports: Dizziness, Syncope ED EXAM, GENERAL - Physical Exam Exam: See Below Exam Limited By: No Limitations General Appearance: Alert, Anxious Eye Exam: Bilateral Eye: Normal Inspection Head: Atraumatic Respiratory/Chest: No Respiratory Distress GI/Abdominal: Soft, Guarding, Rebound (Patient has tenderness, guarding and mild rebound in the left lower quadrant), Tender Extremities: Other (Some tenderness to palpation of the right elbow, very small abrasion over the olecranon and no deformity or effusion. Clavicle and wrist are nontender.) Neurological: Alert, Oriented Psychiatric: Normal Affect, Anxious Skin Exam: Warm, Dry, Other (Very small abrasion over the olecranon of the right elbow) Course - Vital Signs Last Recorded V/S: Last Vital Signs Temp 98.1 F 10/27/18 12:40 Pulse 76 10/27/18 12:40 Resp 16 10/27/18 12:40 BP 121/71 10/27/18 12:40 Pulse Ox 98 10/27/18 12:40 - Orders/Labs/Meds Orders: Active Orders 24 hr Category Date Time Status DME for Discharge [COMM] Stat Oth 10/27/18 14:47 Ordered Labs: Laboratory Tests 10/27/18 10/27/18 Range/Units 13:45 13:45 WBC 17.0 H (4.5-11.0) K/uL RBC 4.43 (3.30-5.50) M/uL Hgb 13.5 (12.0-15.0) g/dL Hct 41.1 (36.0-48.0) % MCV 93 (80-98) fL MCH 31 (27-31) pg MCHC 33 (32-36) % Plt Count 332 (150-400) K/uL Neut % (Auto) 81 H (36-66) % Lymph % (Auto) 10 L (24-44) % [place] % (Auto) 8 H (2-6) % Eos % (Auto) 1 L (2-4) % Baso % (Auto) 0 (0-1) % Sodium 140 (140-148) mmol/L Potassium 4.2 (3.6-5.2) mmol/L Chloride 101 (100-108) mmol/L Carbon Dioxide 29 (21-32) mmol/L Anion Gap 10.2 (5.0-14.0) mmol/L BUN 11 (7-18) mg/dL Creatinine 0.7 (0.6-1.0) mg/dL Est Cr Clr Drug Dosing 101.58 mL/min Estimated GFR (MDRD) > 60 (>60) Glucose 97 (74-106) mg/dL Calcium 9.2 (8.5-10.1) mg/dL Meds: Medications Discontinued Medications Generic Name Dose Route Start Last Admin Trade Name Junq PRN Reason Stop Dose Admin Ketorolac Tromethamine 60 mg 10/27/18 13:31 10/27/18 13:55 Toradol IM 10/27/18 13:32 60 mg ONETIME ONE Administration - Re-Assessments/Exams Free Text/Narrative Re-Assessment/Exam: 10/27/18 14:19 Patient was given 60 mg of IM Toradol, an x-ray of the right elbow was obtained which was negative. CBC and BMP were obtained and a pelvic ultrasound to assess the ovaries. 10/27/18 14:48 White count was 17,000, likely demarginization from pain and syncope. Patient received very little benefit from the Toradol. Elbow x-ray was negative, ultrasound showed a corpus luteal cyst on the left with a small amount of free fluid but no other abnormality. Patient will be discharged with 10 hydrocodone, a sling for her right arm to be worn temporarily, and encouraged to increase activity as tolerated. Recheck in 3-4 days if not improving satisfactorily. Departure - Departure Time of Disposition: 15:01 Disposition: Home, Self-Care 01 Condition: Good Clinical Impression: Contusion of right elbow, initial encounter, Pelvic pain - Discharge Information Instructions: Pelvic Pain, Female, [id number], Elbow Contusion, [id number] Referrals: Marisol García CNM [Primary Care Provider] - Forms: ED Department Discharge Care Plan Goals: Wear elbow sling for comfort but increase activity with your right arm as soon as able. Continue with ibuprofen for pain control, and add stronger pain pills if needed over the next several days. Recheck in 3-4 days if not improving satisfactorily. - My Orders Last 24 Hours: My Active Orders 10/27/18 14:47 DME for Discharge [COMM] Stat - Assessment/Plan Last 24 Hours: My Active Orders 10/27/18 14:47 DME for Discharge [COMM] Stat
--- NOTE | 2018-10-27 14:20 | CRLCR ---
HISTORY: Pain after falling injury. FINDINGS: Three views of the right elbow are provided. There are no findings for fracture, dislocation, effusion or loose body. No arthritic change is noted. Dictated by Juan Jackson MD @ Oct 27 2018 2:18PM Signed by Dr. Juan Jackson @ Oct 27 2018 2:18PM
--- NOTE | 2018-10-27 15:21 | CRLUS ---
HISTORY: Left lower quadrant abdominal pain. TECHNIQUE: Transabdominal and transvaginal pelvic ultrasound. COMPARISON: No prior. FINDINGS: Uterus measures 7.5 x 4.7 x 6.6 cm in size. Endometrial stripe thickness is 12 mm. There is no uterine mass. - Right ovary measures 3.1 x 1.6 x 2.6 cm in size. Small follicles within the right ovary. Blood flow detected within the right ovary without findings of torsion. - Left ovary measures 3.8 x 2.2 x 3.6 cm in size. Mildly complex small cystic structure within the left ovary measures 1 cm in size. Blood flow is detected within the left ovary without findings of torsion. - Small amount of pelvic free fluid. IMPRESSION: 1. Mildly complex 1 cm cyst within the left ovary. Blood flow is detected within the left ovary without findings of torsion. 2. Small amount pelvic free fluid. 3. Normal uterus and right ovary. Dictated by Jason Sandra MD @ 10/27/2018 3:19:03 PM Dictated by: Jason Sandra MD @ 10/27/2018 15:19:13 (Electronically Signed)
== END 2018-10-27 15:01 | disposition home or self-care (01) ==
LOC: JP.ED 11:47
DX: S50.01XA Contusion of right elbow, initial encounter (principal); R10.2 Pelvic and perineal pain; F41.9 Anxiety disorder, unspecified; F17.210 Nicotine dependence, cigarettes, uncomplicated; Z88.1 Allergy status to other antibiotic agents; Z79.899 Other long term (current) drug therapy; W19.XXXA Unspecified fall, initial encounter
CPT/HCPCS: 36415; 73080; 76830; 76856; 80048; 85025; 96372; 99284; J1885